=== PATIENT | female | born 2000 | race African-American/Black ===

== ENCOUNTER 2019-04-25 16:36 | Emergency (ER) | payer BC ==
[2019-04-25 17:03] VITALS: BP 120/79
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
== END 2019-04-25 18:23 | disposition home or self-care (01) ==
LOC: UCCORT 16:36
DX: S69.91XA Unspecified injury of right wrist, hand and finger(s), initial encounter (principal); Y04.0XXA Assault by unarmed brawl or fight, initial encounter; Y92.9 Unspecified place or not applicable
CPT/HCPCS: 99202; G0463